=== PATIENT | female | born 1995 | race Caucasian/White ===

== ENCOUNTER 2019-11-25 11:47 | Emergency (ER) | payer MEDICAID, OTHER ==
[~2019-11-25] VITALS: Ht 165.1 cm; Wt 70.6 kg
--- NOTE | 2019-11-25 12:59 | NUR ---
PT CRYING, AMBULATORY TO BATHROOM, STEADY GAIT. PT TO IMAGING.
[2019-11-25] MEDS ORDERED: ONDANSETRON ODT 4 MG PO ONE (13:00)
[2019-11-25] MEDS ORDERED: MORPHINE SULFATE 4 MG/ML, 1ML IVPush PRN (13:00)
[2019-11-25] MEDS ORDERED: SODIUM CHLORIDE 0.9% 1,000ML IVBOLUS ONE (13:00)
[2019-11-25 13:24] LABS: CULTURE INDICATED? NO; MICROSCOPIC NOT IND
--- NOTE | 2019-11-25 13:28 | NUR ---
assist rn: ATTEMPTED TO START IV ON PT. 1ST ATTEMPT HAD FLASH, ON ADVANCING CATHETER, SWELLING OCCURRED AT INSERTION SITE. IV CATH. REMOVED PT STATED SHE DID NOT WANT ANY MORE BLOOD TAKEN FROM THIS PLACE. WILL INFORM PRIMARY RN.
[2019-11-25] MEDS ORDERED: ONDANSETRON ODT 4 MG ONE (13:39)
--- NOTE | 2019-11-25 13:46 | NUR ---
PT SITTING IN BED, RESPIRATIONS EVEN AND UNLABORED, NO SIGNS OF DISTRESS, LAB TO BEDSIDE. WILL CONTINUE TO MONITOR.
[2019-11-25 14:16] VITALS: BP 127/94
--- NOTE | 2019-11-25 14:17 | NUR ---
BREAK RN: PT RESTING IN [facility], ON MONITOR, CALL LIGHT WITHIN REACH. NO NEEDS AT THIS TIME
--- NOTE | 2019-11-25 14:40 | NUR ---
PT SITTING IN BED, RESPIRATIONS EVEN AND UNLABORED, NO SIGNS OF DISTRESS. WILL CONTINUE TO MONITOR.
== END 2019-11-25 15:01 | disposition home or self-care (01) ==
LOC: ED 13:51
DX: O26.891 Other specified pregnancy related conditions, first trimester (principal); O21.9 Vomiting of pregnancy, unspecified; F17.210 Nicotine dependence, cigarettes, uncomplicated; Z3A.08 8 weeks gestation of pregnancy
CPT/HCPCS: 36415; 76801; 81003; 84702; 99284; 99406; Q0162

== ENCOUNTER 2020-01-29 11:52 | Emergency (ER) | payer MEDICAID ==
[~2020-01-29] VITALS: Ht 165.1 cm; Wt 66.8 kg
[2020-01-29] MEDS ORDERED: ONDANSETRON ODT 4 MG PO ONE (12:30)
[2020-01-29] MEDS ORDERED: ONDANSETRON ODT 4 MG ONE (12:38)
--- NOTE | 2020-01-29 12:44 | NUR ---
THIS IS A 24 YO FEMALE WHO PRESENTS TO THE ER C/O CONT N/V THROUGHTOUT AND DIFFICULTY KEEPING FOOD/WATER DOWN W/O ZOFRAN. PT REPORTS WITH ZOFRAN SHE HAS BEEN ABLE TO EAT/DRINK W/O PROBLEM. PT DENIES PAIN, CRAMPING OR BLEEDING. G - 1 P- 0 A-0. LMP 10/07/19. PT AO X 4. SKIN PWD. RESP EVEN AND UNLABORED. PT CHATTING PLEASANTLY WITH RN.
--- NOTE | 2020-01-29 13:20 | NUR ---
PT SUCCESSFULLY COMPLETED PO CHALLENGE AND REPORTS THAT NAUSEA IS RESOLVED AFTER ZOFRAN.
[2020-01-29 14:22] VITALS: BP 111/76
== END 2020-01-29 14:24 | disposition home or self-care (01) ==
LOC: ED 12:49
DX: O21.0 Mild hyperemesis gravidarum (principal); Z3A.16 16 weeks gestation of pregnancy
CPT/HCPCS: 99283; Q0162

== ENCOUNTER 2020-07-13 14:23 | Inpatient (IN) | payer MEDICAID ==
[~2020-07-13] VITALS: Ht 165.1 cm; Wt 93.2 kg
[2020-07-14] MEDS ORDERED: NEWBORN KIT ONE (06:31)
[2020-07-14 07:09] VITALS: BP 120/77
[2020-07-14] MEDS ORDERED: FENTANYL PF 100 MCG/2ML IV PRN (07:30)
[2020-07-14] MEDS ORDERED: FENTANYL PF 100 MCG/2ML IVPush PRN (07:30)
[2020-07-14] MEDS ORDERED: TERBUTALINE 1 MG/ML, 1ML SQ PRN (07:30)
[2020-07-14] MEDS ORDERED: SODIUM CITRATE/CITRIC ACID 30 ML UDC PO PRN (07:30)
[2020-07-14] MEDS ORDERED: CALCIUM CARBONATE 500 MG TAB.CHEW PO PRN (07:30)
[2020-07-14] MEDS ORDERED: ONDANSETRON 2MG/ML, 2ML IVPush PRN (07:30)
[2020-07-14] MEDS ORDERED: METOCLOPRAMIDE 5 MG/ML, 2ML IVPush PRN (07:30)
[2020-07-14] MEDS ORDERED: OXYTOCIN 30U/ 0.9% NaCL 500ML 500 ML IV ONE (07:30)
[2020-07-14] MEDS ORDERED: TERBUTALINE 1 MG/ML, 1ML IVPush PRN (07:30)
[2020-07-14] MEDS ORDERED: D5%-LACTATED RINGERS 1,000 ML IV SCH (07:30)
[2020-07-14] MEDS: LACTATED RINGERS 1,000 ML IV SCH ×2 (07:35→11:15)
[2020-07-14] MEDS ORDERED: LIDOCAINE 1%, 20ML ONE (07:53)
[2020-07-14] MEDS ORDERED: OXYTOCIN 30U/ 0.9% NaCL 500ML 500 ML ONE ×2 (07:54→23:05)
[2020-07-14] MEDS ORDERED: OXYTOCIN 30U/ 0.9% NaCL 500ML 500 ML IV PRN (08:00)
[2020-07-14 08:01] LABS: BASOPHILS % (AUTO) 0 % (0-1); EOSINOPHILS % (AUTO) 0 % (1-7); LYMPHOCYTES % (AUTO) 14 % (22-44); MEAN CORPUSCULAR HEMOGLOBIN 31.9 pg (27.0-34.8); MEAN CORPUSCULAR HGB CONC 33.5 g/dL (32.4-35.8); MEAN PLATELET VOLUME 8.3 fL (7.4-10.4); MONOCYTES % (AUTO) 6 % (2-9); NEUTROPHILS % (AUTO) 80 % (42-75); PLATELET COUNT 280 x10^3/uL (130-400); RED CELL DISTRIBUTION WIDTH 14.7 % (9.6-15.2)
[2020-07-14 08:04] LABS: MD NO
[2020-07-14 08:06] LABS: MICROSCOPIC NOT IND
[2020-07-14 08:17] LABS: AMPHETAMINE SCREEN, URINE Negative (Negative); BARBITURATE SCREEN, URINE Negative (Negative); BENZODIAZEPINE SCREEN, URINE Negative (Negative); CANNABINOID SCREEN, URINE Positive (Negative); COCAINE SCREEN, URINE Negative (Negative); METHADONE SCREEN, URINE Negative (Negative); OPIATE SCREEN, URINE Negative (Negative)
[2020-07-14] MEDS ORDERED: FENTANYL/BUPIV./NS/PF 250 ML EPIDCONT ONE (08:55)
[2020-07-14] MEDS ORDERED: BUPIVACAINE 0.25% ONE (08:56)
[2020-07-14] MEDS ORDERED: LACTATED RINGERS 1,000 ML IV SCH (09:00)
[2020-07-14] MEDS ORDERED: EPHEDRINE 50 MG/ML, 1ML IVPush PRN (09:00)
[2020-07-14] MEDS ORDERED: LACTATED RINGERS 1,000 ML IVBOLUS PRN (09:00)
[2020-07-14] MEDS ORDERED: FENTANYL/BUPIV./NS/PF 250 ML EPIDCONT SCH (09:00)
[2020-07-14] MEDS ORDERED: NALOXONE 0.4 MG/ML, 1ML IVPush PRN (09:00)
[2020-07-14 19:40] VITALS: BP 120/69
[2020-07-14] MEDS ORDERED: TRANEXAMIC ACID 100 MG/ML, 10ML ONE (22:46)
[2020-07-14] MEDS ORDERED: ONDANSETRON 2MG/ML, 2ML ONE (23:00)
[2020-07-14] MEDS: OXYTOCIN 30U/ 0.9% NaCL 500ML 500 ML IV SCH (23:00)
[2020-07-14 23:40] LABS: BASOPHILS % (AUTO) 0 % (0-1); EOSINOPHILS % (AUTO) 0 % (1-7); LYMPHOCYTES % (AUTO) 9 % (22-44); MEAN CORPUSCULAR HGB CONC 33.1 g/dL (32.4-35.8); MEAN PLATELET VOLUME 8.2 fL (7.4-10.4); MONOCYTES % (AUTO) 5 % (2-9); NEUTROPHILS % (AUTO) 86 % (42-75); PLATELET COUNT 295 x10^3/uL (130-400); RED CELL DISTRIBUTION WIDTH 14.9 % (9.6-15.2)
[2020-07-14 23:41] LABS: MD NO
[2020-07-14] MEDS ORDERED: OXYcodone/APAP 5/325MG TABLET ONE (23:41)
[2020-07-14] MEDS ORDERED: IBUPROFEN 600 MG TABLET ONE (23:41)
[2020-07-14] MEDS: OXYcodone/APAP 5/325MG TABLET PO PRN (23:50)
[2020-07-14] MEDS: IBUPROFEN 600 MG TABLET PO PRN (23:50)
[2020-07-15] MEDS ORDERED: TRANEXAMIC ACID 100 MG/ML, 10ML IV ONE
[2020-07-15] MEDS ORDERED: SIMETHICONE 80 MG CHEW TAB PO PRN
[2020-07-15] MEDS ORDERED: MISOPROSTOL 200 MCG TABLET PR PRN
[2020-07-15] MEDS ORDERED: ONDANSETRON 2MG/ML, 2ML IV PRN
[2020-07-15 00:20] VITALS: BP 104/69
[2020-07-15] MEDS: OXYTOCIN 30U/ 0.9% NaCL 500ML 500 ML IV SCH ×2 (01:28→20:00)
[2020-07-15 04:30] VITALS: BP 109/70
[2020-07-15 05:31] LABS: BASOPHILS % (AUTO) 0 % (0-1); EOSINOPHILS % (AUTO) 0 % (1-7); LYMPHOCYTES % (AUTO) 9 % (22-44); MEAN CORPUSCULAR HEMOGLOBIN 31.3 pg (27.0-34.8); MEAN PLATELET VOLUME 8.3 fL (7.4-10.4); MONOCYTES % (AUTO) 4 % (2-9); NEUTROPHILS % (AUTO) 87 % (42-75); PLATELET COUNT 250 x10^3/uL (130-400); RED BLOOD COUNT 2.42 x10^6/uL (3.82-5.3); RED CELL DISTRIBUTION WIDTH 14.8 % (9.6-15.2)
[2020-07-15 05:37] LABS: MD NO
[2020-07-15 08:00] VITALS: BP 122/75
[2020-07-15] MEDS: IBUPROFEN 600 MG TABLET PO PRN ×2 (08:06→16:52)
[2020-07-15] MEDS: DOCUSATE 100 MG CAPSULE PO PRN (08:06)
[2020-07-15] MEDS: PRENATAL VIT/IRON/FA 1 EACH TABLET PO SCH (08:07)
[2020-07-15 12:12] VITALS: BP 122/77
[2020-07-15] MEDS: FERROUS GLUCONATE 324 MG TABLET PO SCH (16:52)
[2020-07-15 17:14] VITALS: BP 128/84
[2020-07-15 20:05] VITALS: BP 127/80
[2020-07-16] MEDS: OXYTOCIN 30U/ 0.9% NaCL 500ML 500 ML IV SCH (06:00)
[2020-07-16 07:45] VITALS: BP 122/85
[2020-07-16] MEDS: IBUPROFEN 600 MG TABLET PO PRN (07:45)
[2020-07-16] MEDS: PRENATAL VIT/IRON/FA 1 EACH TABLET PO SCH (07:45)
[2020-07-16] MEDS: DOCUSATE 100 MG CAPSULE PO PRN (07:45)
[2020-07-16] MEDS: FERROUS GLUCONATE 324 MG TABLET PO SCH (07:45)
[2020-07-16] MEDS ORDERED: DIPH,PERTUSS(ACELL),TET VAC/PF NC IM-VACC ONE (09:29)
[2020-07-16] MEDS ORDERED: DIPH,PERTUSS(ACELL),TET VAC/PF 0.5 ML IM-VACC ONE (10:00)
[2020-07-16] MEDS: OXYcodone/APAP 5/325MG TABLET PO PRN (11:55)
[2020-07-16] MEDS ORDERED: FLU VACC QS2020-21(6MOS UP)/PF 60MCG/0.5 ML SYR IM ONE (12:30)
[2020-07-16] MEDS ORDERED: IBUP-1222 PO (14:49)
[2020-07-16] MEDS ORDERED: FERR325T23 PO (14:49)
== END 2020-07-16 15:04 | disposition home or self-care (01) | DRG 806 ==
LOC: LDIP 07-14 06:13 → 2NW 07-15 00:58
PROVIDERS: ADMIT Obstetrics & Gynecology; ATTEND Obstetrics & Gynecology
PROC: 10E0XZZ Delivery of Products of Conception, External Approach (ICD-10-PCS; principal; 2020-07-14)
PROC: 0KQM0ZZ Repair Perineum Muscle, Open Approach (ICD-10-PCS; 2020-07-14)
PROC: 3E0P7VZ Introduction of Hormone into Female Reproductive, Via Natural or Artificial Opening (ICD-10-PCS; 2020-07-14)
PROC: 3E0R3BZ Introduction of Anesthetic Agent into Spinal Canal, Percutaneous Approach (ICD-10-PCS; 2020-07-14)
PROC: 00HU33Z Insertion of Infusion Device into Spinal Canal, Percutaneous Approach (ICD-10-PCS; 2020-07-14)
PROC: 3E02340 Introduction of Influenza Vaccine into Muscle, Percutaneous Approach (ICD-10-PCS; 2020-07-16)
PROC: 3E0234Z Introduction of Serum, Toxoid and Vaccine into Muscle, Percutaneous Approach (ICD-10-PCS; 2020-07-16)
DX: O69.81X0 Labor and delivery complicated by cord around neck, without compression, not applicable or unspecified (principal); O72.1 Other immediate postpartum hemorrhage; Z37.0 Single live birth; O70.1 Second degree perineal laceration during delivery; Z3A.39 39 weeks gestation of pregnancy; Z20.828 Contact with and (suspected) exposure to other viral communicable diseases; O99.03 Anemia complicating the puerperium; D64.9 Anemia, unspecified; Z23 Encounter for immunization
CPT/HCPCS: 36415; 80307; 81003; 82947; 85025; 86592; 86850; 86900; 86923; 87635; 90686; 90715; G0378; J2590; J7120